=== PATIENT | female | born 1945 | race Caucasian/White ===

== ENCOUNTER → 2019-12-01 | Day surgery (SDC) | payer MEDICARE, OTHER ==
[~2019-12-01] VITALS: Ht 167.6 cm; Wt 63.5 kg
[~2019-12-01] MED LIST: Amaryl2 MG PO; B121000 MCG/1 IM; CETIRIZINE HYDR10 MG PO; FLONASE ALLERG9.9 ML NAS; Isordil20 MG PO; METOPROLOL SUCC50 M2 PO; NEURONTIN300 MG PO; NORCO 5-325 TA1 EACH PO; PLAVIX75 M1 PO; PROAIR HFA8.5 GM INH; SYMB160 INH; TESSALON PERLE100 MG PO; TOPCARE OMEPRAZ20 MG PO
[2019-12-01 08:39] VITALS: BP 138/56
[2019-12-01 09:53] VITALS: BP 122/65
[2019-12-01 10:08] VITALS: BP 114/51
[2019-12-01 10:23] VITALS: BP 121/51
[2019-12-01 10:38] VITALS: BP 120/54
[2019-12-01 10:53] VITALS: BP 122/54
[2019-12-02 13:04] LABS: ACID FAST SPEC PROCESSING Concentration (.)
== END | disposition home or self-care (01) ==
LOC: SDC 11-29 08:00
PROVIDERS: Internal Medicine Critical Care Medicine
DX: C34.31 Malignant neoplasm of lower lobe, right bronchus or lung (principal); I10 Essential (primary) hypertension; I25.10 Atherosclerotic heart disease of native coronary artery without angina pectoris; J30.2 Other seasonal allergic rhinitis; E11.9 Type 2 diabetes mellitus without complications; J44.9 Chronic obstructive pulmonary disease, unspecified; F41.9 Anxiety disorder, unspecified; Z87.891 Personal history of nicotine dependence